=== PATIENT | female | born 1960 | race African-American/Black ===

== ENCOUNTER → 2016-03-21 | Emergency (ER) | payer OTHER ==
[~2016-03-21] MED LIST: ACETAMINOPHEN 325 MG TABLET (FP) ONE; ACETAMINOPHEN 325 MG TABLET (FP) PO ONE; FAMOTIDINE 20 MG/50 ML IVPB 50 ML IVPB ONE; MAG HYDROX/AL HYDROX/SIMETH 30 ML UNIT-DOSE CUP ONE; MAG HYDROX/AL HYDROX/SIMETH 30 ML UNIT-DOSE CUP PO ONE; ONDANSETRON 4 MG/2 ML VIAL IVPB ONE; ONDANSETRON 4 MG/2 ML VIAL ONE; SODIUM CHLORIDE 1,000 ML IV STA
[2016-03-21 16:35] VITALS: BMI 27.8
--- NOTE | 2016-03-21 17:17 | PDOC ---
History of Present Illness - General History Source: Patient - History of Present Illness Initial Comments: 03/21/16 17:33 The patient is a 55 year old female with a significant past medical history of chronic lower back pain, herniated disk, bulging disk, and sciatica who presents to the Emergency Department with complaints of abdominal pain, nausea, vomiting, diarrhea, and loss of appetite since 4:00am today. Pt reports taking Motrin for her pain, with no relief. She denies fever, chills, dysuria, hematuria, chest pain, SOB, dizziness, headache. (-) recent travel (+) sick contact PSH: left hip replacement <Krista Fong - Last Filed: 03/21/16 17:40> - General History Source: Patient Exam Limitations: No Limitations <Mino Carrillo - Last Filed: 03/23/16 21:33> - General Chief Complaint: Vomiting/Diarrhea Stated Complaint: VOMITING/DIARRHEA Time Seen by Provider: 03/21/16 17:06 Past History <Krista Fong - Last Filed: 03/21/16 17:40> - Past Medical History Other medical history: denies - Immunization History Immunization Up to Date: Yes - Psycho/Social/Smoking Cessation Hx Anxiety: No Suicidal Ideation: No Smoking History: Never smoked Have you smoked in the past 12 months: No Information on smoking cessation initiated: No Hx Alcohol Use: No Drug/Substance Use Hx: No Substance Use Type: None <Mino Carrillo - Last Filed: 03/23/16 21:33> - Past Medical History Allergies/Adverse Reactions: Allergies Allergy/AdvReac Type Severity Reaction Status Date / Time No Known Allergies Allergy Verified 03/21/16 16:32 Home Medications: Ambulatory Orders Cyclobenzaprine HCl [Flexeril] 5 mg PO TID #9 tablet 02/08/15 Ibuprofen [Motrin -] 800 mg PO TID #30 tablet 02/08/15 Oxycodone HCl/Acetaminophen [Percocet 5/325 -] 1 tab PO Q4H #20 tablet 02/08/15 Acetaminophen [Tylenol] 650 mg PO Q4H PRN #20 tablet 03/21/16 Mag Hydrox/Al Hydrox/Simeth [Mylanta Suspension -] 30 ml PO Q6H PRN #1 bottle Ondansetron HCl [Zofran] 4 mg PO Q6H PRN #15 tablet 03/21/16 Ranitidine HCl [Zantac] 150 mg PO BID PRN #14 tablet 03/21/16 Review of Systems - Review of Systems Able to Perform ROS?: Yes Comments:: 03/21/16 17:35 GENERAL/CONSTITUTIONAL: Yes: decrease in appetite No fever or chills. HEAD, EYES, EARS, NOSE AND THROAT: No change in vision. No ear pain or discharge. No sore throat. CARDIOVASCULAR: No chest pain or shortness of breath. RESPIRATORY: No cough, wheezing, or hemoptysis. GASTROINTESTINAL:Yes: abdominal pain, nausea, vomiting, diarrhea No constipation. GENITOURINARY: No dysuria, frequency, or change in urination. MUSCULOSKELETAL: No joint or muscle swelling or pain. No neck or back pain. SKIN: No rash NEUROLOGIC: No headache, vertigo, loss of consciousness, or change in strength/ sensation. ENDOCRINE: No increased thirst. No abnormal weight change. HEMATOLOGIC/LYMPHATIC: No anemia, easy bleeding, or history of blood clots. ALLERGIC/IMMUNOLOGIC: No hives or skin allergy. <Krista Fong - Last Filed: 03/21/16 17:40> *Physical Exam - Vital Signs Last Vital Signs Temp Pulse Resp BP Pulse Ox 99.2 F 87 20 135/84 98 03/21/16 16:32 03/21/16 16:32 03/21/16 16:32 03/21/16 16:32 03/21/16 16:32 - Physical Exam Comments: 03/21/16 17:40 GENERAL: Awake, alert, and fully oriented, in no acute distress HEAD: No signs of trauma EYES: PERRLA, EOMI, sclera anicteric, conjunctiva clear ENT: +dry mucous membrane. Auricles normal inspection, hearing grossly normal, nares patent, oropharynx clear without exudates. NECK: Normal ROM, supple, no lymphadenopathy, JVD, or masses LUNGS: Breath sounds equal, clear to auscultation bilaterally. No wheezes, and no crackles HEART: Regular rate and rhythm, normal S1 and S2, no murmurs, rubs or gallops ABDOMEN: Soft, nontender, normoactive bowel sounds. No guarding, no rebound. No masses EXTREMITIES: Normal range of motion, no edema. No clubbing or cyanosis. No cords, erythema, or tenderness NEUROLOGICAL: Cranial nerves II through XII grossly intact. Normal speech, normal gait SKIN: Warm, Dry, normal turgor, no rashes or lesions noted. <Krista Fong - Last Filed: 03/21/16 17:40> - Vital Signs Last Vital Signs Temp Pulse Resp BP Pulse Ox 99.2 F 87 20 135/84 98 03/21/16 16:32 03/21/16 16:32 03/21/16 16:32 03/21/16 16:32 03/21/16 16:32 <Mnio Carrillo - Last Filed: 03/23/16 21:33> ED Treatment Course - Medications Given in the ED: ED Medications Discontinued Medications Generic Name Dose Route Start Last Admin Trade Name Mosesq PRN Reason Stop Dose Admin Acetaminophen 650 mg 03/21/16 17:11 03/21/16 17:32 Tylenol - PO 03/21/16 17:12 650 mg ONCE ONE Administration Al Hydroxide/Mg Hydroxide 30 ml 03/21/16 17:11 03/21/16 17:32 Mylanta Oral Suspension - PO 03/21/16 17:12 30 ml ONCE ONE Administration Ondansetron HCl 4 mg 03/21/16 17:11 03/21/16 17:32 Zofran Injection IVPB 03/21/16 17:12 4 mg ONCE ONE Administration <Krista Fong - Last Filed: 03/21/16 17:40> - LABORATORY CBC & Chemistry Diagram: 03/21/16 18:00 03/21/16 18:00 <Mino Carrillo - Last Filed: 03/23/16 21:33> Medical Decision Making - Medical Decision Making 03/21/16 17:17 A portion of this note was documented by scribe services under my direction. I have reviewed the details of the note, within reason, and agree with the documentation with the following case summary and management plan written by me. Patient treated in the ED. Nursing notes are reviewed and incorporated into the medical decision-making. Vital signs reviewed. Peripheral IV access obtained by the nurse, laboratory studies are drawn and sent, reviewed and interpreted by myself. Vital Signs Temp Pulse Resp BP Pulse Ox 99.2 F 87 20 135/84 98 03/21/16 16:32 03/21/16 16:32 03/21/16 16:32 03/21/16 16:32 03/21/16 16:32 55-year-old female with history of left hip pain awaiting left hip replacement presents to the emergency department for nausea, vomiting, diarrhea and abdominal cramping. Reports decreased appetite and tactile fevers. Has positive sick contacts. No abdominal tenderness. Likely viral gastritis. We'll obtain labs, give IV fluids and treat symptoms and reassess. 03/21/16 19:25 CBC, BMP 03/21/16 18:00 03/21/16 18:00 CMP Sodium 140 mmol/L (136-145) 03/21/16 18:00 Potassium 4.1 mmol/L (3.5-5.1) 03/21/16 18:00 Chloride 104 mmol/L (98-107) 03/21/16 18:00 Carbon Dioxide 28 mmol/L (21-32) 03/21/16 18:00 Anion Gap 8 (8-16) 03/21/16 18:00 BUN 23 mg/dL (7-18) H 03/21/16 18:00 Creatinine 0.6 mg/dL (0.55-1.02) 03/21/16 18:00 Creat Clearance w eGFR > 60 (>60) 03/21/16 18:00 Random Glucose 85 mg/dL (74-106) 03/21/16 18:00 Calcium 9.0 mg/dL (8.5-10.1) 03/21/16 18:00 Total Bilirubin 0.6 mg/dL (0.2-1.0) 03/21/16 18:00 AST 19 U/L (15-37) 03/21/16 18:00 ALT 20 U/L (12-78) 03/21/16 18:00 Alkaline Phosphatase 67 U/L (45-117) 03/21/16 18:00 Total Protein 7.7 g/dl (6.4-8.2) 03/21/16 18:00 Albumin 3.9 g/dl (3.4-5.0) 03/21/16 18:00 Lipase 141 U/L (73-393) 03/21/16 18:00 UA pending. The patient has been reassessed. She appears significantly well. The patient reports feeling well. Likely viral gastroenteritis. <Mino Carrillo - Last Filed: 03/23/16 21:33> *DC/Admit/Observation/Transfer - Attestations Scribe Attestion: 03/21/16 17:41 Documentation prepared by Krista Fong, acting as medical support assistant for Mion Carrillo MD. <Krista Fong - Last Filed: 03/21/16 17:40> - Discharge Dispostion Admit: No <Mino Carrillo - Last Filed: 03/23/16 21:33> Diagnosis at time of Disposition: Gastroenteritis - Discharge Dispostion Disposition: HOME Condition at time of disposition: Good - Prescriptions Prescriptions: Mag Hydrox/Al Hydrox/Simeth [Mylanta Suspension -] 30 ml PO Q6H PRN #1 bottle PRN Reason: Abdominal Pain Acetaminophen [Tylenol] 650 mg PO Q4H PRN #20 tablet PRN Reason: Pain/Fever Ranitidine HCl [Zantac] 150 mg PO BID PRN #14 tablet PRN Reason: Abdominal Pain Ondansetron HCl [Zofran] 4 mg PO Q6H PRN #15 tablet PRN Reason: Nausea - Referrals Referrals: Ryan Ritter MD [Primary Care Provider] - - Patient Instructions Printed Discharge Instructions: DI for Viral Gastroenteritis -- Adult Additional Instructions: Please take the medications as prescribed. Drink plenty of fluids and rest. Please call and schedule an appointment with your PMD.
[2016-03-21 18:14] LABS: BASOPHIL 0.3 % (0-2.0); EOSINOPHIL 0.4 % (0-4.5); MCH 29.7 pg (25.7-33.7); MCHC 31.9 g/dl (32.0-36.0); MEAN CELL VOLUME 93.1 fl (80-96); MEAN PLT VOLUME 9.3 fl (7.5-11.1); NEUTROPHILS 86.2 % (42.8-82.8); PLATELET COUNT 292 K/MM3 (134-434); RDW 12.6 % (11.6-15.6); WHITE BLOOD COUNT 10.6 K/mm3 (4.0-10.0)
[2016-03-21 18:39] LABS: ALBUMIN 3.9 g/dl (3.4-5.0); ANION GAP 8 (8-16); BILIRUBIN,TOTAL 0.6 mg/dL (0.2-1.0); CO2 28 mmol/L (21-32); CREATININE 0.6 mg/dL (0.55-1.02); GLUCOSE,RANDOM 85 mg/dL (74-106); SGOT/AST 19 U/L (15-37); SGPT/ALT 20 U/L (12-78); TOT PROT 7.7 g/dl (6.4-8.2)
[2016-03-21 18:40] LABS: ALK PHOS 67 U/L (45-117)
[2016-03-21 19:25] LABS: URINE APPEARANCE SLCLOUDY; URINE BILIRUBIN NEGATIVE (NEGATIVE); URINE COLOR YELLOW; URINE GLUCOSE (UA) NEGATIVE (NEGATIVE); URINE KETONE 1+ (NEGATIVE); URINE LEUK ESTERASE NEGATIVE (NEGATIVE); URINE NITRITE NEGATIVE (NEGATIVE); URINE PROTEIN NEGATIVE (NEGATIVE); URINE UROBILINOGEN NEGATIVE E.U./dl (0.2-1.0)
[2016-03-21 19:26] LABS: URINE BLOOD 2+ (NEGATIVE)
[2016-03-21 19:35] LABS: URINE BACTERIA MANY /hpf (NONE SEEN); URINE MUCUS FEW; URINE RBC 9 /hpf (0-3); URINE WBC 4 /hpf (3-5)
[2016-03-21 19:42] VITALS: BP 130/70; PULSE 86; TEMP 98.3
== END | disposition home or self-care (01) ==
LOC: JER 16:26
PROC: 3E033GC Introduction of Other Therapeutic Substance into Peripheral Vein, Percutaneous Approach (ICD-10-PCS; principal; 2016-03-21)
DX: K52.9 Noninfective gastroenteritis and colitis, unspecified (principal)
CPT/HCPCS: 36415; 80053; 81003; 81015; 83690; 85025; 96365; 96375; 99283-25

== ENCOUNTER 2018-09-13 16:15 | Emergency (ER) | payer OTHER ==
--- NOTE | 2018-09-13 16:22 | PDOC ---
Rapid Medical Evaluation Time Seen by Provider: 09/13/18 16:20 Medical Evaluation: Allergies Allergy/AdvReac Type Severity Reaction Status Date / Time No Known Allergies Allergy Verified 03/21/16 16:32 09/13/18 16:20 HPI:B eye irritation x2 weeks PE: No gross deficits ORDERS: Nothing Discharge Disposition - Diagnosis Eye irritation - Referrals - Patient Instructions - Post Discharge Activity
[2018-09-13 16:26] VITALS: BP 120/87; PULSE 67; TEMP 98.2; BMI 29.2
--- NOTE | 2018-09-13 17:03 | PDOC ---
History of Present Illness - General Chief Complaint: Eye Problem Stated Complaint: eye problem Time Seen by Provider: 09/13/18 16:20 History Source: Patient Exam Limitations: No Limitations - History of Present Illness Initial Comments: 09/13/18 16:58 patient came with complaints of itching, scratching eyes 2 weeks. States got some [id number] Visine and has used with minimal resolved. Denies fever, denies purulent drainage from eyes, no visual changes orforeign body sensation. States has ophthalmology appointment next week Timing/Duration: getting worse (2 weeks ) Severity: mild Associated Symptoms: denies: fever/chills Past History - Travel Traveled outside of the country in the last 30 days: No Close contact w/someone who was outside of country & ill: No - Past Medical History Allergies/Adverse Reactions: Allergies Allergy/AdvReac Type Severity Reaction Status Date / Time No Known Allergies Allergy Verified 09/13/18 16:21 Home Medications: Ambulatory Orders Ketotifen Fumarate [Zaditor] 5 ml OP BID PRN #1 drops 09/13/18 - Immunization History Immunization Up to Date: Yes - Suicide/Smoking/Psychosocial Hx Smoking History: Never smoked Have you smoked in the past 12 months: No Information on smoking cessation initiated: No Hx Alcohol Use: No Drug/Substance Use Hx: No Substance Use Type: None Review of Systems - Review of Systems Able to Perform ROS?: Yes Is the patient limited Jamaican proficient: Yes Constitutional: Yes: See HPI, Malaise. No: Symptoms Reported, Fever HEENTM: Yes: Symptoms Reported, See HPI, Eye Pain, Tearing. No: Blurred Vision Respiratory: Yes: See HPI. No: Symptoms reported Musculoskeletal: No: Symptoms Reported All Other Systems: Reviewed and Negative *Physical Exam - Vital Signs Last Vital Signs Temp Pulse Resp BP Pulse Ox 98.2 F 67 17 120/87 97 09/13/18 16:22 09/13/18 16:22 09/13/18 16:22 09/13/18 16:22 09/13/18 16:22 - Physical Exam General Appearance: Yes: Nourished, Appropriately Dressed, Mild Distress HEENT: positive: TODD, Normal ENT Inspection, TMs Normal, Rhinorrhea, Other ( ild erythema and white thin discharge from both eyes. With some injection.) Neck: positive: Supple. negative: Tender, Lymphadenopathy (R), Lymphadenopathy (L) Respiratory/Chest: positive: Lungs Clear, Normal Breath Sounds. negative: Chest Tender Extremity: positive: Normal Capillary Refill, Normal Inspection Integumentary: positive: Dry, Warm, Pale Neurologic: positive: launchman II-XII NML intact, Fully Oriented, Alert, Normal Mood/ Affect, Normal Response, Motor Strength 5/5 Medical Decision Making - Medical Decision Making 09/13/18 17:04 ALLERGIC conjunctivitis, will treat with Zaditor drops in lubricating drops. Patient has follow-up appointment next week with ophthalmology *DC/Admit/Observation/Transfer Diagnosis at time of Disposition: Allergic conjunctivitis of both eyes - Discharge Dispostion Disposition: HOME Condition at time of disposition: Stable Decision to Admit order: No - Prescriptions Prescriptions: Ketotifen Fumarate [Zaditor] 5 ml OP BID PRN #1 drops PRN Reason: itching - Referrals Referrals: Moses Clay MD [Primary Care Provider] - - Patient Instructions Printed Discharge Instructions: DI for Eye Allergic Reaction Additional Instructions: Rest, avoid rubbing eyes May use oral antihistamines for ALLERGIES Use lubricating drops as needed Zaditor ALLERGIC eyedrops 1drops to affected eye 2 times a day as needed for itching eyes Avoid contact with others until redness and discharge is gone from eyes. Followup with ophthalmology or private physician as needed - Post Discharge Activity
== END 2018-09-13 17:13 | disposition home or self-care (01) ==
LOC: JERFT 16:15
DX: H10.13 Acute atopic conjunctivitis, bilateral (principal)
CPT/HCPCS: 99281-25

== ENCOUNTER 2020-10-26 16:47 | Emergency (ER) | payer OTHER ==
[2020-10-26 17:03] VITALS: BP 132/90; PULSE 79; TEMP 98.9; BMI 29.7
== END 2020-10-26 18:46 | disposition home or self-care (01) ==
LOC: JER 16:47
DX: Z11.52 Encounter for screening for COVID-19 (principal)
CPT/HCPCS: 99283-25; C9803; U0003; U0005

== ENCOUNTER 2020-10-31 15:37 | Emergency (ER) | payer OTHER ==
[2020-10-31 16:07] VITALS: BP 106/60; PULSE 88; TEMP 100.1; BMI 29.6
[2020-10-31] MEDS ORDERED: DEXAMETHASONE LIQUID 0.5 MG/5 ML PO ONE (16:41)
[2020-10-31] MEDS ORDERED: DEXAMETHASONE SOD PHOSPHATE 10 MG/1 ML VIAL ONE (16:47)
[2020-10-31] MEDS ORDERED: CASIRIVIMAB/IMDEVIMAB 10 ML in SODIUM CHLORIDE 100 ML IVPB ONE (16:59)
[2020-10-31] MEDS ORDERED: ONDANSETRON *ODT* 4 MG TABLET SL ONE (18:34)
[2020-10-31] MEDS ORDERED: ACETAMINOPHEN 500 MG TABLET (FP) PO ONE (18:34)
[2020-10-31 19:18] LABS: HEMATOCRIT 40.7 % (32.4-45.2); HEMOGLOBIN 13.5 GM/dL (10.7-15.3); MCH 30.3 pg (25.7-33.7); MCHC 33.3 g/dl (32.0-36.0); MEAN CELL VOLUME 91.1 fl (80-96); MEAN PLT VOLUME 9.4 fl (7.5-11.1); PLATELET COUNT 186 10^3/uL (134-434); RBC 4.47 M/mm3 (3.60-5.2); RDW 12.7 % (11.6-15.6); WHITE BLOOD COUNT 7.1 K/mm3 (4.0-10.0)
[2020-10-31 19:39] LABS: CALCIUM 8.8 mg/dL (8.5-10.1)
[2020-10-31 19:40] LABS: ALBUMIN 3.6 g/dl (3.4-5.0); BLOOD UREA NITROGEN 13.7 mg/dL (7-18)
[2020-10-31 19:43] LABS: CREATININE 1.1 mg/dL (0.55-1.3)
[2020-10-31 19:44] LABS: BILIRUBIN,TOTAL 0.6 mg/dL (0.2-1); TOT PROT 7.6 g/dl (6.4-8.2)
== END 2020-10-31 20:35 | disposition home or self-care (01) ==
LOC: JCOVINFU 15:37
DX: U07.1 COVID-19 (principal)
CPT/HCPCS: 36415; 71046-TC-FY; 80053; 85027; 99284-25; M0240; Q0162; Q0240